=== PATIENT | female | born 1970 | race Caucasian/White ===

== ENCOUNTER 2022-02-26 13:45 | Outpatient (CLI) | payer OTHER, SELFPAY ==
[2022-02-26 14:29] LABS: Urine Cotinine NEGATIVE
== END 2022-02-26 13:46 | disposition home or self-care (01) ==
LOC: ANHLAB 13:46
PROVIDERS: Visit Provider Surgery Plastic and Reconstructive Surgery
DX: Z01.818 Encounter for other preprocedural examination (principal)
CPT/HCPCS: 80307

== ENCOUNTER 2022-03-18 01:07 | Day surgery (SDC) | payer OTHER, SELFPAY ==
[2022-03-13 11:16] VITALS: BMI 25.4
--- NOTE | 2022-03-13 11:30 | PC.NURSE ---
Report to the Outpatient Waiting Room, entrance under the green pavilion located off [facility], at time 9am on date 03/18OR Time: 11am. - You and your visitor will be asked to self-screen and do not enter if you have any COVID symptoms. - Only one visitor and NO children visitors are allowed at this time. - The patient visitor is requested to leave or wait in car when not with patient due to restrictions. - A mask is required within the hospital. Patients may have clear liquids (water, carbonated beverages, clear teas, apple juice) until 3 hours prior to surgery with a maximum of 20 ounces. - No food from midnight until time of surgery Take the following medications with a SIP of water the morning of surgery: levothyroxine and escitalopram Medications to discontinue per physician NA Please no make-up, nail thai, hairspray, perfume, deodorant, or body powder the day of surgery. No jewelry (including any body piercings) or valuables the day of surgery, leave them at home. Please take a shower or bath the night before, or the morning of, surgery with an antibacterial soap. Wear comfortable, loose fitting clothing. Children are encouraged to wear pajamas. - Jewelry must be removed prior to entering the operating room. Rings and piercings that are not removed may be cut off. - The hospital will not accept responsibility for valuables. - Please leave all valuables, including medications, at home the day of surgery. If you are going home after surgery, a licensed regional [employer] company driver must drive you home. - NO public transportation without another adult. - We recommend that an adult stay with you for 24 hours following discharge. - We also recommend that you do not drive, make important decision, drink alcoholic beverages, or take any drugs that were not prescribed by your health care provider for at least 24 hours after your discharge time. For Pediatric surgeries, we recommend two adults accompany the child home (only one inside the building at this time). Follow any additional instructions given to you from your surgeon. If you or anyone in your household have experienced Covid symptoms in the past week, please notify your surgeon or the nurse liaison at the phone number below for possible testing. Telephone instructions given to patient and asked if any additional questions and then verbalized understanding. Patient advised to call surgeon office or pre surgery nurse liaison [phone] if any additional questions.
[2022-03-18] VITALS (10 sets, daily range): BP systolic 110–131; BP diastolic 65–77; PULSE 62–94; RESP 12–16; TEMP 36.6–37; O2SAT 97–100
--- NOTE | 2022-03-18 07:57 | ECG_ITS ---
Measurements Intervals [place] Rate: 57 P: 38 OH: 150 QRS: -25 QRSD: 89 T: 15 QT: 439 QTc: 430 Interpretive Statements SINUS BRADYCARDIA BORDERLINE LEFT AXIS DEVIATION LOW QRS VOLTAGE IN PRECORDIAL LEADS Electronically Signed On 03-18-2022 12:39:56 CDT by Rory Hawk M.D.
[2022-03-18] MEDS: LACTATED RINGERS 1,000 ML 30 ML IV CONT ×2 (09:19→13:14)
[2022-03-18 09:30] LABS: Urine Cotinine NEGATIVE
--- NOTE | 2022-03-18 09:59 | P.PNAN_ITS ---
Anes - Initial Pre Proc Eval Procedure: Operation Date: 03/18/22 11:00 Proposed Procedures p Bilateral Breast Mastopexy with Galaflex, - Jeff House MD Date/Time: 03/18/22 09:59 Surgeon: Jeff House MD Pre Op Diagnosis: breast ptosis,unaccept cosmetic appearance Patient Data Age: 51 Gender: F Height: 1.6 m Weight: 63.9 kg Last Vital Signs Temp 98.6 F 03/18/22 08:56 Pulse 62 03/18/22 08:56 Resp 16 03/18/22 08:56 BP 122/77 03/18/22 08:56 Pulse Ox 100 03/18/22 08:56 O2 Del Method Room Air 03/18/22 08:56 Allergies Allergy/AdvReac Type Severity Reaction Status Date / Time No Known Allergies Allergy Unverified 03/18/22 09:23 Home Medications Medication Instructions Recorded Confirmed Type escitalopram oxalate 10 mg tablet 10 mg PO DAILY 12/05/21 03/18/22 History (Lexapro) levothyroxine 88 mcg tablet 88 mcg PO DAILY 12/05/21 03/18/22 History (Synthroid) docusate sodium 100 mg capsule 100 mg PO DAILY #14 caps 02/27/22 03/18/22 Rx (Colace) ondansetron HCl 4 mg tablet 4 mg PO Q8H #21 tabs 02/27/22 03/18/22 Rx oxycodone-acetaminophen 5 mg-325 1 tablet PO Q6H PRN pain #30 tabs 02/27/22 03/18/22 Rx mg tablet (Percocet) Laboratory Tests 03/18/22 09:00 Cotinine Negative Patient hx anesthesia problems: none Family hx anesthesia problems: none Results Review: All pre-operative results and documents have been reviewed as part of the pre- operative evaluation. [facility] Past Medical History Medical History Hx of thyroid cancer Surgical History Surgical History Hx of breast augmentation Hx of tubal ligation Social History Social History Smoking status: Light tobacco smoker Tobacco type: cigarettes Additional smoking assessment comments: few cigarettes per week Alcohol intake: current Drinks per week: 6 Living arrangements: with family Spiritual care concerns: No Anes - Eval Final PreProcedure Day of Procedure 03/18/22 09:59 Patient weight: normal Heart: regular rate and rhythm Lungs: clear to auscultation Airway: Mallampati scale class II Neurological: alert and oriented Last oral intake: >/= 8 hours ASA classification: II Emergent: no Anesthetic plan: proceed Anesthesia type and monitoring: general LMA and standard monitoring Results Review: All pre-operative results and documents have been reviewed as part of the pre- operative evaluation. Informed Consent: The patient's anesthetic plan and its attendant risks and benefits were discussed with the patient/family/POA. Questions were solicited and answers provided to the satisfaction of the patient/family/POA.
--- NOTE | 2022-03-18 10:05 | WPDHPUPDATE1 ---
History and Physical Update Update Date/Time: 03/18/22 10:05 History and Physical has been reviewed, including an updated exam of the patient. There are NO changes in the patient's condition. Risks, benefits, and alternatives have been discussed and questions answered. Patient agrees to proceed with procedure.
--- NOTE | 2022-03-18 10:13 | W.PM.PROC2 ---
Procedure Note - Detailed Date of Procedure 03/18/22 Pre-op Diagnosis breast ptosis,unaccept cosmetic appearance Post-op Diagnosis Same Procedure Performed Bilateral mastopexy with Galaflex Surgeon Jeff House MD Anesthesia General Findings Inverted T Superior pedicle Galaflex REF# [id number] Description of Procedure She is here today for bilateral breast mastopexy with galaflex. She has a history of bilateral breast augmentation and understands if injury to the implant she may need replacement today. She understands there is always risk of missed injury. Previously and again today the risks, benefits, alternatives were discussed in extensive detail. I wanted her to be very realistic about the risks involved as well as expectations. We discussed aftercare and what to monitor for. Made sure answered all of her questions to her satisfaction today and consent was obtained. Marked in the preoperative holding area with their verification. The patient was taken to the operating room placed supine on the operating table. Anesthesia was provided by anesthesiology. A surgical time-out was taken. We cleansed the skin and 1% lidocaine and 0.25% Marcaine with epinephrine was used anesthetize as a field block. She was prepped and draped in a standard sterile fashion. I tailor tacked the breast into position. Placed her in a sitting position. Verified the nipple-areolar location based on preoperative planning as well as intraoperative observations and measurements in full agreement. She was placed supine. I de-epithelialized the pedicle. I then removed the inferior central portion of the breast need making sure the implant was well protected. I elevated medial and lateral tissue flaps as well for planned closure. Galaflex was soaking in betadine solution. It was trimmed and sutured into place bilateral with 3-0 Vicryl. I closed along the IMF with 2-0 Stratafix. Along the vertical with 2-0 PDS. I closed around the Adria with 3-0 strata fix. 3-0 Monocryl along the vertical. 3-0 Stratafix along the IMF. I finally closed everything with running subcuticular 4-0 Monocryl and tissue glue. There was no evidence of implant injury. Good color and capillary refill at the end of the case of NAC. Fluffs and surgical bra were placed. Estimated Blood Loss 30 Drains No Packing No Pathology None sent Complications No immediate complications Condition Stable Disposition PACU
[2022-03-18] MEDS: ceFAZolin 2 GM/D5W 50 ML 2 GM/50 ML BAG IVPB (10:47)
[2022-03-18] MEDS: NACL 0.9% IRRIG POUR BOTTLE 900 ML, GENTAMICIN SULFATE INJ 160 MG, ceFAZolin 2 GM, POVI... IRRIGATION (10:47)
[2022-03-18] MEDS: LIDO 1%/EPINEPHRINE 1:100,000 50 ML VIAL 30 ML INFILTRATE (10:47)
[2022-03-18] MEDS: BUPIVACAINE HCL 0.25% PF 30 ML VIAL INFILTRATE (10:47)
[2022-03-18] MEDS: LACTATED RINGERS IRRIG 1,000 ML, LIDOCAINE HCL 1% LOCAL INJ 50 ML, EPINEPHrine HCL INJ ... INFILTRATE (10:47)
[2022-03-18] MEDS: TRANEXAMIC ACID 1,000MG/ISO100 1,000 MG/100 ML BAG 200 MG IVPB (11:00)
[2022-03-18] MEDS: fentaNYL CITRATE INJ (*CRX) 100 MCG/2 ML VIAL 25 MCG IV PUSH ×4 (13:23→13:56)
[2022-03-18] MEDS: oxyCODONE HCL (*CRX) 5 MG TAB IR PO (15:06)
--- NOTE | 2022-03-18 15:37 | SUR.PHASEII ---
Patient is getting dressed. Vitals are stable.
== END 2022-03-18 15:45 | disposition home or self-care (01) ==
PROVIDERS: Visit Provider Surgery Plastic and Reconstructive Surgery
PROC: (CPT 19316; principal; 2022-03-18 11:00)
DX: N64.81 Ptosis of breast (principal); Z98.82 Breast implant status; Z87.891 Personal history of nicotine dependence
CPT/HCPCS: 19380; 15777 ×2; 80307; 93005; A9270; J0171; J0690; J1100; J1170; J1580; J2250; J2405; J2704; J3010; J7120